=== PATIENT | female | born 1990 | race Caucasian/White ===

== ENCOUNTER 2022-10-25 21:44 | Emergency (ER) | payer SELFPAY ==
[~2022-10-25] VITALS: Ht 170.2 cm; Wt 66.0 kg
[2022-10-25 21:48] VITALS: BP 121/75; PULSE 85; RESP 18; TEMP 98.1; O2SAT 100
[2022-10-25] MEDS ORDERED: KETOROLAC 30MG/ML VIAL IV STA (22:01)
[2022-10-25] MEDS ORDERED: ONDANSETRON HCL 4MG/2ML INJ IV STA (22:01)
[2022-10-25] MEDS ORDERED: FAMOTIDINE 20MG/2ML VIAL IV ONE (22:15)
[2022-10-25] MEDS ORDERED: SODIUM CHLORIDE 0.9% 1,000 ML IV ONE (22:15)
[2022-10-25] MEDS ORDERED: MAGNESIUM/ALUMINUM HYDROXIDE/SIMETHICONE 30ML UDC PO ONE (22:15)
[2022-10-25 22:55] LABS: DIFFERENTIAL COMMENT 1; HEMATOCRIT. 38.4 % (36.0-48.0); HEMOGLOBIN. 12.7 g/dL (12.0-16.0); MEAN CORPUSCULAR HEMOGLOBIN 30.5 pg (28.0-32.0); MEAN CORPUSCULAR VOLUME 92.4 fL (81.0-99.0); MEAN PLATELET VOLUME 8.5 fl (7.4-10.4); PLATELET 265 x1000/uL (130-400); RED BLOOD CELL COUNT 4.16 mill/uL (4.2-5.4); RED CELL DISTRIBUTION WIDTH 12.7 % (11.6-14.6); WHITE BLOOD COUNT 14.4 x1000/uL (4.5-11.0)
[2022-10-25 23:04] LABS: CHLORIDE 112 mEq/L (98-107); HCG SCREEN NEGATIVE; INDEX HEMOLYSI 1 (1-3); INDEX ICTERIC 1 (1-4); INDEX LIPEMIC 1 (1-3); POTASSIUM 3.7 mEq/L (3.5-5.1); SODIUM 142 mEq/L (136-145)
[2022-10-25 23:09] LABS: ALANINE AMINOTRANSFERASE 20 IU/L (13-61); ALBUMIN 4.2 g/dL (3.4-5.0); ASPARTATE AMINOTRANSFERASE 17 IU/L (15-37); CALCIUM 8.6 mg/dL (8.5-10.1); CARBON DIOXIDE 19 mEq/L (21-32); CREATININE 0.8 mg/dL (0.6-1.3); ETHANOL BLOOD < 10 mg/dL (-10); GLUCOSE 157 mg/dL (70-105); UREA NITROGEN BLOOD 16 mg/dL (7-21)
[2022-10-25 23:11] LABS: BILIRUBIN TOTAL 0.6 mg/dL (0.1-1.0); PROTEIN TOTAL 7.3 g/dL (6.0-8.3)
[2022-10-25 23:34] LABS: PLATELET ESTIMATE NORMAL
[2022-10-26] MEDS ORDERED: METO-293 MT (00:15)
[2022-10-26] MEDS ORDERED: DIPHENHYDRAMINE 50MG/ML VIAL IV ONE (00:15)
[2022-10-26] MEDS ORDERED: METOCLOPRAMIDE HCL 10MG/2ML VIAL IV ONE (00:15)
== END 2022-10-26 01:44 | disposition home or self-care (01) ==
LOC: ER 21:44
DX: R11.2 Nausea with vomiting, unspecified (principal)
CPT/HCPCS: 80053; 80320; 84703; 83690; 85025; 36415; 93005; 96361; 96374; 96375; 99284; J3490; J2405; J7030; Z7610; J1200; J2765; G0480